=== PATIENT | female | born 1985 | race Hispanic/Latino ===

== ENCOUNTER 2019-05-13 17:13 | Emergency (ER) | payer MEDICAID ==
[~2019-05-13 17:13] MED LIST: ACET1TAB12 PO
[2019-05-13] MEDS ORDERED: ACETAMINOPHEN-CODEINE 300/30MG TAB ONE (18:05)
== END 2019-05-13 18:19 | disposition home or self-care (01) ==
LOC: EDH 17:13
DX: S82.64XA Nondisplaced fracture of lateral malleolus of right fibula, initial encounter for closed fracture (principal); E11.9 Type 2 diabetes mellitus without complications; E03.9 Hypothyroidism, unspecified; E78.00 Pure hypercholesterolemia, unspecified; Z90.49 Acquired absence of other specified parts of digestive tract; X50.0XXA Overexertion from strenuous movement or load, initial encounter; Y93.89 Activity, other specified; Y92.098 Other place in other non-institutional residence as the place of occurrence of the external cause; Y99.8 Other external cause status
CPT/HCPCS: 29515; 73610; 81025

== ENCOUNTER → 2019-05-24 | Outpatient (CLI) | payer MEDICAID | END | disposition home or self-care (01) | LOC: RAH 13:36 | PROVIDERS: ATTEND Family Medicine | DX: N92.0 Excessive and frequent menstruation with regular cycle (principal) | CPT/HCPCS: 76856 ==